=== PATIENT | male | born 1995 | race Caucasian/White ===

== ENCOUNTER 2019-10-13 23:26 | Emergency (ER) | payer SELFPAY ==
[~2019-10-13] VITALS: Ht 188 cm; Wt 123.0 kg
[2019-10-14 00:32] LABS: BASOPHILS % 0.5 % (0.0-2.0); HEMATOCRIT. 43.3 % (42.0-52.0); HEMOGLOBIN. 14.6 g/dL (14.0-18.0); LYMPHOCYTES % 17.7 % (20.0-50.0); MEAN CORPUSCULAR HEMOGLOBIN 28.8 pg (28.0-32.0); MEAN CORPUSCULAR VOLUME 85.5 fL (80.0-94.0); MONOCYTES % 11.7 % (2.0-8.0); NEUTROPHILS % 70.1 % (40.0-76.0); PLATELET 207 x1000/uL (130-400); RED BLOOD CELL COUNT 5.06 mill/uL (4.7-6.1); RED CELL DISTRIBUTION WIDTH 13.4 % (11.6-14.6)
[2019-10-14 00:42] LABS: CHLORIDE 103 mEq/L (98-107)
[2019-10-14 00:42] LABS: CLARITY URINE CLOUDY (CLEAR); COLOR URINE DARK YELLOW (YELLOW); KETONES URINE NEGATIVE (NEGATIVE); LEUKOCYTE ESTERASE URINE NEGATIVE (NEGATIVE); NITRITE URINE NEGATIVE (NEGATIVE); OCCULT BLOOD URINE 1+ (NEGATIVE); PROTEIN URINE 2+ (NEGATIVE); SPECIFIC GRAVITY URINE 1.026 (1.005-1.030)
[2019-10-14 00:46] LABS: ETHANOL BLOOD < 10 mg/dL
[2019-10-14 00:51] LABS: CREATINE KINASE 364 IU/L (39-308)
[2019-10-14 01:06] VITALS: BP 107/65
[2019-10-14 01:08] LABS: *COCAINE SCREEN URINE NEGATIVE (NEGATIVE)
[2019-10-14 01:09] LABS: *AMPHETAMINES SCREEN URINE NEGATIVE (NEGATIVE); *BARBITURATES SCREEN URINE NEGATIVE (NEGATIVE); CANNABINOID URINE SCREEN PRESUMTIVE POSITIVE (NEGATIVE); METHADONE URINE SCREEN NEGATIVE (NEGATIVE); OPIATES URINE SCREEN NEGATIVE (NEGATIVE); PHENCYCLIDINE URINE SCREEN NEGATIVE (NEGATIVE)
[2019-10-14 01:10] LABS: *BENZODIAZEPINES SCREEN URINE NEGATIVE (NEGATIVE)
[2019-10-14] MEDS ORDERED: ACETAMINOPHEN 500MG TABLET PO ONE (01:30)
[2019-10-14] MEDS ORDERED: POTASSIUM CHLORIDE 20MEQ TABLET SR PO NR (01:30)
== END 2019-10-14 01:49 | disposition home or self-care (01) ==
LOC: ER 23:26
DX: J10.1 Influenza due to other identified influenza virus with other respiratory manifestations (principal); M62.82 Rhabdomyolysis; E87.6 Hypokalemia; R55 Syncope and collapse
CPT/HCPCS: 36415; 71045; 80053; 80305; 80320; 81003; 82550; 83605; 83690; 83880; 85025; 87804; 93005; 99284; Z7610; G0480